=== PATIENT | male | born 1945 | race Caucasian/White ===

== ENCOUNTER 2019-05-01 06:13 | Day surgery (SDC) | payer OTHER, MEDICARE ==
[2019-04-28 17:16] VITALS: BMI 31.7
[2019-05-01] MEDS ORDERED: MIDAZOLAM HCL 2 MG/2 ML SINGLE DOSE VIAL ONE (08:21)
[2019-05-01] MEDS ORDERED: ROPIVACAINE HCL 0.5% 30ML VIAL ONE (08:21)
[2019-05-01] MEDS ORDERED: ONDANSETRON 4 MG/2 ML VIAL ONE (09:20)
[2019-05-01] MEDS ORDERED: ceFAZolin SODIUM 1 GM VIAL ONE (09:20)
[2019-05-01 12:23] VITALS: BP 107/69; PULSE 56; TEMP 97.7
--- NOTE | 2019-05-02 09:09 | OP ---
DATE OF OPERATION: 05/01/2019 LOCATION: [facility] SURGEON: Breonna Delgado MD BRICKMASON APPRENTICE: PIETRO Lundberg PREOPERATIVE DIAGNOSES: 1. Right shoulder rotator cuff tear. 2. Right shoulder impingement syndrome. 3. Right shoulder adhesive capsulitis. 4. Right shoulder superior labral tear, anterior/posterior synovitis. 5. Right shoulder acromioclavicular joint disease. PROCEDURES: 1. Right shoulder arthroscopy with arthroscopic rotator cuff repair. CPT code 79771. 2. Right shoulder arthroscopy with subacromial decompression. CPT code 05988. 3. Right shoulder arthroscopy with debridement. CPT code 34184. 4. Right shoulder arthroscopy with distal clavicle resection. CPT code 78021. 5. Right shoulder arthroscopy with superior labral tear, anterior/posterior debridement. CPT code 51985. FINDINGS: 1. Extensive tearing of biceps tendon with scarring to the supraspinatus. 2. Superior labral tear, anterior/posterior type 4 with extension. 3. Anterior grade 2 to 3 cartilage injury, glenoid and humerus. 4. Diffuse grade 2 to 3 cartilage injury, humerus. 5. Glenohumeral synovitis with adhesions and scar tissue. 6. Thickened scar tissue of subacromial space with adhesions and scar tissue. 7. Inferior spur, distal clavicle, with acromioclavicular joint disease. 8. Full-thickness supraspinatus rotator cuff tear with V-type avulsion from the infraspinatus. REPAIR TYPE: Four [id number] sutures were placed from the supraspinatus to the infraspinatus, closing the gap and reducing it towards the lateral area. A bleeding bone bed was then produced, and the final [id number] was secured to the humerus with 2 anchors. Informed consent was obtained. The patient was taken to the operating room, where the upper extremity was prepped and draped in a sterile fashion. The shoulder was manipulated for a full range of motion. A posterior incision portal was made and directed to the glenohumeral joint. Under direct visualization, an anterior incision and portal was made. Extensive synovitis, as well as chondral injuries throughout the glenohumeral joint were debrided and removed. Any identified labral injuries, including the superior labral tear, anterior and posterior, and anterior labrum torn portions, were removed as well. The rotator cuff was visualized and noted to have a full-thickness tear. The edges were debrided. The posterior incision portal was redirected to the subacromial space where a lateral incision portal was made. Excessive and thickened scar tissue noted throughout the subacromial space, including bursal and scar tissue, were removed. The type 2 acromion was converted into a flattened type 1 using a bur for subacromial decompression. The distal inferior spur at the distal clavicle was also debrided with the use of an accessory portal in the acromioclavicular joint. The edges of the rotator cuff were identified. Sutures were placed into the rotator cuff and secured using anchors through the greater tuberosity. Prior to securing, a bleeding bed was made using a small bur, creating a bleeding surface of the rotator cuff insertion. The shoulder was then drained, a single suture was placed in all portals, a sterile dressing was placed and the patient was transferred to the recovery room without complication. ADDENDUM: Remnants of the biceps were used to help further strengthen the repair and incorporated into the repair with a biceps tenodesis. The PA listed above was present and assisted at surgery. Their presence was absolutely medically necessary for the completion of the procedure. They helped hold the arthroscopy, pass instruments (and implants when indicated) and the procedure could not have been completed without their assistance. BREONNA DELGADO M.D. [id number]
--- NOTE | 2019-05-05 15:07 | PATH ---
Surgical Pathology Report Patient Name: GERARDO CHÁVEZ [facility]. Rec. #: [id number] /Age/Gender: 1945 (Age: 73) / M Account: [id number] [facility] Taken: 05/01/2019 Received: 05/01/2019 Reported: 05/05/2019 Physicians: Lul Gould M.D. Specimen(s) Received SHAVINGS RIGHT SHOULDER Clinical History Right shoulder internal derangement Final Diagnosis SHOULDER SHAVINGS, RIGHT, ARTHROSCOPY WITH ROTATOR CUFF REPAIR: FRAGMENTS OF CARTILAGE, BONE, DENSE FIBROCONNECTIVE TISSUE, ADIPOSE TISSUE, AND SYNOVIUM. Electronically Signed Akiko Rosen M.D. Gross Description Received in formalin, labeled "right shoulder shavings," is a 4.5 x 4.3 x 0.4 cm. aggregate of leo-yellow soft tissue fragments. A in store marketing representative portion is submitted in one cassette. 05/04/2019 saudi05/04/2019
== END 2019-05-01 12:23 | disposition home or self-care (01) ==
LOC: FASU 06:13
PROVIDERS: ATTEND Orthopaedic Surgery
PROC: 0RNJ4ZZ Release Right Shoulder Joint, Percutaneous Endoscopic Approach (ICD-10-PCS; 2019-05-01)
PROC: 0PB94ZZ Excision of Right Clavicle, Percutaneous Endoscopic Approach (ICD-10-PCS; 2019-05-01)
PROC: 0RBJ4ZZ Excision of Right Shoulder Joint, Percutaneous Endoscopic Approach (ICD-10-PCS; 2019-05-01)
PROC: 0LQ14ZZ Repair Right Shoulder Tendon, Percutaneous Endoscopic Approach (ICD-10-PCS; principal; 2019-05-01 09:30)
DX: M75.121 Complete rotator cuff tear or rupture of right shoulder, not specified as traumatic (principal); M75.41 Impingement syndrome of right shoulder; M75.01 Adhesive capsulitis of right shoulder; M24.111 Other articular cartilage disorders, right shoulder; M65.811 Other synovitis and tenosynovitis, right shoulder; M19.011 Primary osteoarthritis, right shoulder
CPT/HCPCS: 88304-TC; 94760